=== PATIENT | female | born 1970 ===

== ENCOUNTER 2020-03-28 05:55 | Emergency (ER) | payer SELFPAY ==
[2020-03-28 07:02] LABS: Absolute Lymphocytes (CBC) 1.7 K/uL (0.7-4.9); Basophils % 0.5 % (0-1.3); Hematocrit 39.9 % (36.0-45.0); Lymphocytes % 27.5 % (15.3-44.8); MPV 8.9 fL (7.6-11.3); RBC Red Blood Cell Count 4.43 M/uL (3.86-4.86)
[2020-03-28 07:05] LABS: Protime INR 1.01
[2020-03-28 07:17] LABS: ALT/SGPT 25 U/L (12-78); AST/SGOT 18 U/L (15-37); Alkaline Phosphatase 102 U/L (45-117); BUN Blood Urea Nitrogen 13 mg/dL (7-18); Bicarbonate 24 mmol/L (21-32); Bilirubin Direct < 0.1 mg/dL (0-0.2); Bilirubin Total 0.3 mg/dL (0.2-1.0); Glucose Level 155 mg/dL (74-106); Magnesium 2.5 mg/dL (1.8-2.4); NT PRO-BNP 74 pg/mL (<125); Potassium 3.5 mmol/L (3.5-5.1); Sodium Level 141 mmol/L (136-145); Troponin (Emerg Dept Use Only) < 0.02 ng/mL (0.0-0.045)
--- NOTE | 2020-03-28 08:34 | RAD REPORT ---
EXAM DESCRIPTION: CT - Head Brain Wo Cont - 03/28/2020 7:38 am CLINICAL HISTORY: Dizziness COMPARISON: None TECHNIQUE: Computed axial tomography of the head was obtained. IV contrast was not requested. All CT scans are performed using dose optimization technique as appropriate and may include automated exposure control or mA/KV adjustment according to patient size. FINDINGS: An intracranial bleed is not seen . The ventricles are normal in caliber. No extra-axial fluid collection is noted. Cerebellar tonsillar ectopia is present. Empty sella turcica is seen. Fluid within the sinuses/ mastoids is not seen. IMPRESSION: No acute intracranial abnormality is seen. If patient's symptoms persist MRI of the bra in would be recommended.
--- NOTE | 2020-03-28 08:51 | ER ---
Nurse's Notes [facility] [place] Name: Bambi Figueredo Age: 49 yrs Sex: Female : 1970 Arrival Date: 03/28/2020 Time: 06:04 Bed 13 Private MD: Diagnosis: Headache-Cerebellar tonsillar ectopia and empty sella turcica;Syncope and collapse-near;Dizziness and giddiness Presentation: 03/28 06:05 Chief complaint: Patient's son or daughter states: She began to feel dizzy around 0400. jb4 It is coming in waves and earlier it was not that bad. It got worse to the point she felt like she was going to pass out, and her vision was fading. She said that the last time this happened her doctor said it was because her blood sugar was low. 06:05 Coronavirus screen: Client denies travel out of the [place] in the last 14 days. At this jb4 time, the client does not indicate any symptoms associated with coronavirus-19. Ebola Screen: No symptoms or risks identified at this time. Initial Sepsis Screen: Does the patient meet any 2 criteria? HR > 90 bpm. Yes Does the patient have a suspected source of infection? No. Patient's initial sepsis screen is negative. Risk Assessment: Do you want to hurt yourself or someone else? Patient reports no desire to harm self or others. Onset of symptoms was March 28, 2020. Transition of care: patient was not received from another setting of care. 06:05 Method Of Arrival: Ambulatory jb4 06:05 Acuity: GRACE 3 jb4 Historical: - Allergies: 06:05 No Known Allergies; jb4 - Home Meds: 06:05 None [Active]; jb4 - PMHx: 06:05 None; jb4 - PSHx: 06:05 None; jb4 - Immunization history:: Adult Immunizations unknown. - Social history:: Smoking status: Patient denies any tobacco usage or history of. Patient/guardian denies using alcohol, street drugs. Screenin:05 Abuse screen: Denies threats or abuse. Nutritional screening: No deficits noted. jb4 Tuberculosis screening: No symptoms or risk factors identified. Fall Risk None identified. Assessment: 06:05 General: Appears in no apparent distress. uncomfortable, Behavior is calm, cooperative, jb4 appropriate for age. Pain: Denies pain. 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 Full function Gait is steady, Speech is normal, Facial symmetry appears normal, Pupils are PERRLA, Reports dizziness, since 0400. Cardiovascular: Patient's skin is warm and dry. Respiratory: Airway is patent Respiratory effort is even, unlabored, Respiratory pattern is regular, symmetrical. GI: No signs and/or symptoms were reported involving the gastrointestinal system. : No signs and/or symptoms were reported regarding the genitourinary system. EENT: No signs and/or symptoms were reported regarding the EENT system. Derm: Skin is intact, Skin is pink, warm \T\ dry. Musculoskeletal: Circulation, motion, and sensation intact. Range of motion: intact in all extremities. 06:30 Reassessment: Pt reports needing to use the restroom, attempted to get patient to use jb4 the bedside commode, pt refused. Explained to the patient that we do not know the reason for her dizziness and for safety it would be better to use the bedside commode, pt refused. Pt shown where the restroom is. 06:35 Reassessment: Provider at the bedside performing initial assessment. jb4 07:15 Reassessment: Patient appears in no apparent distress at this time. Patient and/or hb family updated on plan of care and expected duration. Pain level reassessed. Patient is alert, oriented x 3, equal unlabored respirations, skin warm/dry/pink. 08:15 Reassessment: Patient appears in no apparent distress at this time. Patient and/or hb family updated on plan of care and expected duration. Pain level reassessed. Patient is alert, oriented x 3, equal unlabored respirations, skin warm/dry/pink. 09:00 Reassessment: Patient appears in no apparent distress at this time. Patient and/or hb family updated on plan of care and expected duration. Pain level reassessed. Patient is alert, oriented x 3, equal unlabored respirations, skin warm/dry/pink. Vital Signs: 06:05 BP 131 / 77; Pulse 96; Resp 16; Temp 97.6(O); Pulse Ox 98% on R/A; Weight 63.5 kg (R); jb4 Height 5 ft. 1 in. (154.94 cm) (R); Pain 0/10; 07:30 BP 122 / 74; Pulse 92; Resp 16; Pulse Ox 100% on R/A; hb 08:43 BP 114 / 77; Pulse 93; Resp 16; Pulse Ox 100% on R/A; Pain 0/10; hb 06:05 Body Mass Index 26.45 (63.50 kg, 154.94 cm) jb4 ED Course: 06:04 Patient arrived in ED. ag3 06:05 Arm band placed on right wrist. jb4 06:05 Patient has correct armband on for positive identification. Placed in gown. Bed in low jb4 position. Call light in reach. Side rails up X 1. Pulse ox on. NIBP on. 06:19 Venkata Varela, RN is Primary Nurse. jb4 06:22 Triage completed. jb4 07:01 Fabián Pollack MD is Attending Physician. tw4 07:15 Attending Physician role handed off by Fabián Pollack MD aisha 07:15 Federico Reynolds MD is Attending Physician. aisha 07:39 CT Head Brain wo Cont In Process Unspecified. EDMS 08:40 XRAY Chest (1 view) In Process Unspecified. EDMS 08:48 Sravan Stephens MD is Referral Physician. aisha 09:12 No provider procedures requiring assistance completed. IV discontinued, intact, hb bleeding controlled, No redness/swelling at site. Administered Medications: 09:10 Drug: Aspirin Chewable Tablet 162 mg Route: PO; hb 09:10 Follow up: Response: Medication administered at discharge. hb 09:10 Drug: Meclizine 25 mg Route: PO; hb 09:10 Follow up: Response: Medication administered at discharge. hb 09:10 Drug: Ondansetron (Zofran) 4 mg Route: PO; hb 09:10 Follow up: Response: Medication administered at discharge. hb Point of Care Testing: Blood Glucose: 06:05 Blood Glucose: 153 mg/dL; jb4 Ranges: Outcome: 08:51 Discharge ordered by . aisha 09:12 Discharged to home ambulatory, with significant other. hb 09:12 Condition: stable 09:12 Discharge instructions given to patient, significant other, Instructed on discharge instructions, follow up and referral plans. medication usage, Demonstrated understanding of instructions, follow-up care, medications, Prescriptions given X 2. 09:12 Patient left the ED. hb Signatures: Dispatcher [employer] EDFederico Mckay MD MD cha Baxter, Heather, RN RN Venkata Whaley RN RN jb4 Fabián Pollack MD MD tw4 Lakia Shaw ag3
--- NOTE | 2020-03-28 08:51 | EDPHYS ---
Physician Documentation [facility] Name: Bambi Figueredo Age: 49 yrs Sex: Female : 1970 Arrival Date: 03/28/2020 Time: 06:04 Bed 13 Private MD: ED Physician Federico Reynolds HPI: 03/28 06:48 This 49 yrs old Female presents to ER via Ambulatory with complaints of Dizziness. tw4 06:48 The patient presents with dizziness, feeling faint. Onset: The symptoms/episode tw4 began/occurred just prior to arrival. Modifying factors: The symptoms are alleviated by nothing, the symptoms are aggravated by nothing. Associated signs and symptoms: The patient has no apparent associated signs or symptoms. Severity of symptoms: At their worst the symptoms were moderate in the emergency department the symptoms are unchanged. The patient has not experienced similar symptoms in the past. Historical: - Allergies: 06:05 No Known Allergies; jb4 - Home Meds: 06:05 None [Active]; jb4 - PMHx: 06:05 None; jb4 - PSHx: 06:05 None; jb4 - Immunization history:: Adult Immunizations unknown. - Social history:: Smoking status: Patient denies any tobacco usage or history of. Patient/guardian denies using alcohol, street drugs. ROS: 06:48 Constitutional: Negative for fever, chills, and weight loss, Eyes: Negative for injury, tw4 pain, redness, and discharge, Cardiovascular: Negative for chest pain, palpitations, and edema, Respiratory: Negative for shortness of breath, cough, wheezing, and pleuritic chest pain, Abdomen/GI: Negative for abdominal pain, nausea, vomiting, diarrhea, and constipation, MS/Extremity: Negative for injury and deformity, Skin: Negative for injury, rash, and discoloration. 06:48 Neuro: Positive for dizziness, Negative for altered mental status, gait disturbance, headache, hearing loss, seizure activity, speech changes, syncope, near syncope, tingling, tinnitus, tremor, visual changes, weakness. Exam: 06:48 Constitutional: This is a well developed, well nourished patient who is awake, alert, tw4 and in no acute distress. Head/Face: Normocephalic, atraumatic. Chest/axilla: Normal chest wall appearance and motion. Nontender with no deformity. No lesions are appreciated. Cardiovascular: Regular rate and rhythm with a normal S1 and S2. No gallops, murmurs, or rubs. Normal PMI, no JVD. No pulse deficits. Respiratory: Lungs have equal breath sounds bilaterally, clear to auscultation and percussion. No rales, rhonchi or wheezes noted. No increased work of breathing, no retractions or nasal flaring. Abdomen/GI: Soft, non-tender, with normal bowel sounds. No distension or tympany. No guarding or rebound. No evidence of tenderness throughout. Back: No spinal tenderness. No costovertebral tenderness. Full range of motion. MS/ Extremity: Pulses equal, no cyanosis. Neurovascular intact. Full, normal range of motion. Neuro: Awake and alert, GCS 15, oriented to person, place, time, and situation. Cranial nerves II-XII grossly intact. Motor strength 5/5 in all extremities. Sensory grossly intact. Cerebellar exam normal. Normal gait. 08:59 ECG was reviewed by the Attending Physician. aisha Vital Signs: 06:05 BP 131 / 77; Pulse 96; Resp 16; Temp 97.6(O); Pulse Ox 98% on R/A; Weight 63.5 kg (R); jb4 Height 5 ft. 1 in. (154.94 cm) (R); Pain 0/10; 07:30 BP 122 / 74; Pulse 92; Resp 16; Pulse Ox 100% on R/A; hb 08:43 BP 114 / 77; Pulse 93; Resp 16; Pulse Ox 100% on R/A; Pain 0/10; hb 06:05 Body Mass Index 26.45 (63.50 kg, 154.94 cm) jb4 MDM: 06:40 Patient medically screened. tw4 07:15 Patient medically screened. aisha 08:34 Differential diagnosis: cardiac arrhythmia, CVA, generalized weakness, hypovolemia, aisha near-syncope, TIA, vertigo. Data reviewed: vital signs, nurses notes, lab test result(s), EKG, radiologic studies, CT scan, plain films. Data interpreted: nursing service administrator: rate is 96 beats/min, rhythm is regular, Pulse oximetry: on is 98 %. Test interpretation: by ED physician or midlevel provider: ECG, plain radiologic studies. Counseling: I had a detailed discussion with the patient and/or guardian regarding: the historical points, exam findings, and any diagnostic results supporting the discharge/admit diagnosis, lab results, radiology results, the need for outpatient follow up, for definitive care, a family practitioner, a neurologist. 03/28 06:28 Order name: Basic Metabolic Panel; Complete Time: 07:41 tw4 03/28 06:28 Order name: CBC with Diff; Complete Time: 07:41 tw4 03/28 06:28 Order name: LFT's; Complete Time: 07:41 tw4 03/28 06:28 Order name: Magnesium; Complete Time: 07:41 tw4 03/28 06:28 Order name: NT PRO-BNP; Complete Time: 07:41 tw4 03/28 06:28 Order name: PT-INR; Complete Time: 07:41 tw4 03/28 06:28 Order name: Troponin (emerg Dept Use Only); Complete Time: 07:41 tw4 03/28 06:29 Order name: Glucose, Ancillary Testing; Complete Time: 07:41 EDMS 03/28 06:31 Order name: Glucose, Ancillary Testing EDMS 03/28 07:04 Order name: CT Head Brain wo Cont; Complete Time: 08:47 tw4 03/28 08:18 Order name: XRAY Chest (1 view) aisha 03/28 06:28 Order name: EKG; Complete Time: 06:29 tw4 03/28 06:28 Order name: Cardiac monitoring; Complete Time: 06:32 tw4 03/28 06:28 Order name: EKG - Nurse/Tech; Complete Time: 06:42 tw4 03/28 06:28 Order name: IV Saline Lock; Complete Time: 06:50 tw4 03/28 06:28 Order name: Labs collected and sent; Complete Time: 06:50 tw4 03/28 06:28 Order name: O2 Per Protocol; Complete Time: 06:32 tw4 03/28 06:28 Order name: O2 Sat Monitoring; Complete Time: 06:32 tw4 EC:48 Rate is 92 beats/min. Rhythm is regular. QRS [place] is Normal. ND interval is normal. QRS tw4 interval is normal. QT interval is normal. No Q waves. T waves are Flattened in lead V2. No ST changes noted. Clinical impression: NSR w/ Non-specific ST/T Changes. Interpreted by me. Reviewed by me. Administered Medications: 09:10 Drug: Aspirin Chewable Tablet 162 mg Route: PO; hb 09:10 Follow up: Response: Medication administered at discharge. hb 09:10 Drug: Meclizine 25 mg Route: PO; hb 09:10 Follow up: Response: Medication administered at discharge. hb 09:10 Drug: Ondansetron (Zofran) 4 mg Route: PO; hb 09:10 Follow up: Response: Medication administered at discharge. Point of Care Testing: Blood Glucose: 06:05 Blood Glucose: 153 mg/dL; jb4 Ranges: Critical Glucose Levels:Adult <50 mg/dl or >400 mg/dl <40 mg/dl or >180 mg/dl Disposition: 03/28/20 08:51 Discharged to Home. Impression: Headache - Cerebellar tonsillar ectopia and empty sella turcica, Syncope and collapse - near, Dizziness and giddiness. - Condition is Stable. - Discharge Instructions: Dizziness, General Headache Without Cause, Near-Syncope, Weakness, Near-Syncope, [id number], Aspirin and Your Heart, General Headache Without Cause, [id number], Dizziness, [id number]. - Prescriptions for Meclizine 25 mg Oral Tablet - take 1 tablet by ORAL route every 8 hours As needed; 21 tablet. Zofran 4 mg Oral Tablet - take 1 tablet by ORAL route every 12 hours As needed; 14 tablet. - Medication Reconciliation Form, Thank You Letter, Antibiotic Education, Prescription Opioid Use form. - Follow up: Private Physician; When: 2 - 3 days; Reason: Recheck today's complaints, Continuance of care, Re-evaluation by your physician. Follow up: Sravan Stephens MD; When: 2 - 3 days; Reason: Recheck today's complaints, Re-evaluation by your physician. - Problem is new. - Symptoms have improved. Signatures: Dispatcher [employer] EDFederico Mckay MD MD cha Baxter, Heather, JANNIE RN Venkata Whaley RN RN jb4 Fabián Pollack MD MD tw4 Corrections: (The following items were deleted from the chart) 08:56 08:51 03/28/2020 08:51 Discharged to Home. Impression: Headache - Cerebellar tonsillar aisha ectopia and empty sella turcica; Syncope and collapse - near. Condition is Stable. Forms are Medication Reconciliation Form, Thank You Letter, Antibiotic Education, Prescription Opioid Use. Follow up: Private Physician; When: 2 - 3 days; Reason: Recheck today's complaints, Continuance of care, Re-evaluation by your physician. Follow up: Sravan Stephens; When: 2 - 3 days; Reason: Recheck today's complaints, Re-evaluation by your physician. Problem is new. Symptoms have improved. [facility] 09:12 08:56 03/28/2020 08:51 Discharged to Home. Impression: Headache - Cerebellar tonsillar hb ectopia and empty sella turcica; Syncope and collapse - near; Dizziness and giddiness. Condition is Stable. Discharge Instructions: General Headache Without Cause, Near-Syncope, Weakness, Near-Syncope, [id number], Aspirin and Your Heart, General Headache Without Cause, [id number]. Prescriptions for Meclizine 25 mg Oral Tablet - take 1 tablet by ORAL route every 8 hours As needed; 21 tablet, Zofran 4 mg Oral Tablet - take 1 tablet by ORAL route every 12 hours As needed; 14 tablet. and Forms are Medication Reconciliation Form, Thank You Letter, Antibiotic Education, Prescription Opioid Use. Follow up: Private Physician; When: 2 - 3 days; Reason: Recheck today's complaints, Continuance of care, Re-evaluation by your physician. Follow up: Sravan Stephens; When: 2 - 3 days; Reason: Recheck today's complaints, Re-evaluation by your physician. Problem is new. Symptoms have improved. [facility]
[2020-03-28] MEDS ORDERED: ASPIRIN EC 81 MG TAB PO ONE (09:14)
[2020-03-28] MEDS ORDERED: MECLIZINE HCL 12.5 MG TAB ONE (09:15)
[2020-03-28] MEDS ORDERED: ONDANSETRON 4 MG (ODT) TAB ONE (09:15)
[2020-03-28 09:18] VITALS: TEMP 97.6
[2020-03-28 09:19] VITALS: O2SAT 100
[2020-03-28 09:21] VITALS: BP 114/77
--- NOTE | 2020-03-28 09:31 | RAD REPORT ---
EXAM DESCRIPTION: Dayne Single View03/28/2020 8:40 am CLINICAL HISTORY: cough COMPARISON: none FINDINGS: The lungs appear clear of acute infiltrate. The heart is normal size IMPRESSION: No acute abnormalities displayed
--- NOTE | 2020-03-30 07:28 | EKG ---
Test Date: 2020-03-28 Test Time: 06:40:49 Nut Culler: VIKY MEASUREMENT RESULTS: Intervals: Rate: 92 OR: 154 QRSD: 98 QT: 348 QTc: 430 [place]: P: 63 OR: 154 QRS: 38 T: 63 INTERPRETIVE STATEMENTS: Normal sinus rhythm Incomplete right bundle branch block Borderline ECG No previous ECG available for comparison Electronically Signed On 03-30-20 07:24:00 DIRECTOR OF STRATEGIC ALLIANCES by Krish Mao
== END 2020-03-28 09:12 | disposition home or self-care (01) ==
LOC: ER 05:55
DX: R51.9 Headache, unspecified (principal); Q07.00 Arnold-Chiari syndrome without spina bifida or hydrocephalus; E23.6 Other disorders of pituitary gland; R55 Syncope and collapse
CPT/HCPCS: 36415; 70450; 71045; 80048; 80076; 82947; 83735; 83880; 84484; 85025; 85610; 93005; 99284